=== PATIENT | male | born 1990 | race Caucasian/White ===

== ENCOUNTER 2023-10-15 16:18 | Emergency (ER) | payer SELFPAY ==
[~2023-10-15] VITALS: Ht 177.8 cm; Wt 70.5 kg
[2023-10-15 16:37] VITALS: BP 139/82; PULSE 120; TEMP 98.3; O2SAT 98
[2023-10-15 17:55] VITALS: RESP 18
== END 2023-10-15 17:48 ==
LOC: ER 16:19
DX: S60.416A Abrasion of right little finger, initial encounter (principal); M24.541 Contracture, right hand; Z72.89 Other problems related to lifestyle; Z98.890 Other specified postprocedural states; X58.XXXA Exposure to other specified factors, initial encounter; Y93.89 Activity, other specified; Y92.89 Other specified places as the place of occurrence of the external cause; Y99.8 Other external cause status
CPT/HCPCS: 99283